=== PATIENT | male | born 1955 | race Caucasian/White ===

== ENCOUNTER 2017-10-31 18:46 | Emergency (ER) | payer OTHER ==
--- NOTE | 2017-10-31 18:48 | UC ---
Skin Complaint HPI - HPI Summary HPI Summary: 62 yo male presents with tick bite to left thigh. First noticed about 1 hour DRAFTER - says it hasn't been on him more than today. Itches, but no pain. Denies fever, chills, myalgias. - History of Current Complaint Time Seen by Provider: 10/31/17 18:48 Stated Complaint: TICK Hx Obtained From: Patient Onset/Duration: Sudden Onset Skin Exposure Onset/Duration: Hours Ago - Allergy/Home Medications Allergies/Adverse Reactions: Allergies Allergy/AdvReac Type Severity Reaction Status Date / Time No Known Allergies Allergy Verified 10/31/17 19:02 Home Medications: Home Medications Levothyroxine TAB* [Synthroid 125 MCG TAB*] 125 mcg PO DAILY 10/31/17 [History Confirmed 10/31/17] Rosuvastatin Calcium [Crestor] 5 mg PO DAILY 10/31/17 [History Confirmed ] Review of Systems Constitutional: Negative Skin: Other - Tick bite left thigh Respiratory: Negative Cardiovascular: Negative Neurovascular: Negative Neurological: Negative Psychological: Negative All Other Systems Reviewed And Are Negative: Yes PMH/Surg Hx/FS Hx/Imm Hx Endocrine History: Hypothyroidism, Dyslipidemia - Surgical History Surgical History: None - Family History Known Family History: Positive: Hypertension - Social History Occupation: Employed Full-time Lives: With Family Alcohol Use: Occasionally Substance Use Type: None Smoking Status (MU): Never Smoked Tobacco Physical Exam - Summary Physical Exam Summary: GENERAL: NAD. WDWN. No pain distress. SKIN: LEFT anterior thigh: there is a 7mm diameter of mild erythema and edema with central tick embedded within the skin. Not engorged. No streaking, bleeding , or drainage. NECK: Supple. Nontender. No lymphadenopathy. CHEST: No accessory muscle use. Breathing comfortably and in no distress. CV: RRR. Without m/r/g. NEURO: Alert. CN II-XII grossly intact. PSYCH: Age appropriate behavior. Triage Information Reviewed: Yes Vital Signs: Vital Signs: Temp Pulse Resp BP Pulse Ox 98.6 F 78 16 136/93 100 10/31/17 18:57 10/31/17 18:57 10/31/17 18:57 10/31/17 18:57 10/31/17 18:57 Course/Dx - Course Course Of Treatment: Tick removed with tick tweezers. Tick present for < 24hours. No treatment needed. - Diagnoses Provider Diagnoses: Tick bite left thigh Discharge - Sign-Out/Discharge Documenting (check all that apply): Discharge/Admit/Transfer - Discharge Plan Condition: Stable Disposition: HOME Patient Education Materials: Lyme Disease (ED), Tick Bite (ED) Referrals: No Primary Care Phys,NOPCP [Primary Care Provider] - Additional Instructions: If you develop a fever, shortness of breath, chest pain, new or worsening symptoms - please call your PCP or go to the ED. Your blood pressure was high at todays visit. Please see your primary provider within 4 weeks for recheck and re-evaluation. - Billing Disposition and Condition Condition: STABLE Disposition: HOME
== END 2017-10-31 19:17 | disposition home or self-care (01) ==
LOC: UCCORT 18:46
DX: S70.362A Insect bite (nonvenomous), left thigh, initial encounter (principal); W57.XXXA Bitten or stung by nonvenomous insect and other nonvenomous arthropods, initial encounter; Y93.9 Activity, unspecified; Y92.9 Unspecified place or not applicable; E03.9 Hypothyroidism, unspecified; E78.5 Hyperlipidemia, unspecified
CPT/HCPCS: 99201; G0463